=== PATIENT | female | born 1995 | race African-American/Black ===

== ENCOUNTER 2019-01-23 18:29 | Emergency (ER) | payer SELFPAY ==
[~2019-01-23] VITALS: Ht 165.1 cm; Wt 86.2 kg
--- NOTE | 2019-01-23 18:48 | NUR ---
pt ambulating with steady gait. family at bedside. A&O x4. c/o right jaw pain started yesterday. hx of cellulitis on the other cheek per pt. had dental procedure done beginning of the year. pain does not radiate per pt. able to clench teeth without pain. speech is clear and able to make needs known / follow commands. Breathing even and unlabored, no SOB noted. denies any / GI distress. fall precautions implemented per protocol. bed low, s/r up x2.
--- NOTE | 2019-01-23 19:07 | NUR ---
Report given to Lita LONDON
--- NOTE | 2019-01-23 19:07 | NUR ---
HAND OFF AND SBAR RECEIVED FROM OUTGOING DAY SHIFT RN MD AT BEDSIDE FOR HX AND PHYSICAL PT IS CALM, NAD DECLINED PAIN MEDS AT THIS TIME, C/O PAIN ON R LOWER MOLAR ALONG THE GUMLINE PT STATES SHE WOULD LIKE TO WAIT FOR ADMITTING GLERK TO TALK ABOUT INSURANCE OPTIONS BEFORE ANY INTERVENTIONS/DIAGNOSTICS CAN BE DONE SIDERAILSX2 UP BED AT LOWEST POSITION
[2019-01-23] MEDS ORDERED: SWABABLE VALVE TRANSFER SET EA MC ONE (19:41)
[2019-01-23] MEDS ORDERED: IV NORMAL SALINE 250 ML IV ONE (19:41)
[2019-01-23] MEDS ORDERED: IOHEXOL 300MG/ML 100 ML INFUS..BTL ONE (19:41)
--- NOTE | 2019-01-23 20:06 | NUR ---
Patient does not wish to proceed with medical care recommended by Dr. GUAJARDO. Patient given information related to possible complications, up to and including , which could occur as a result of leaving the hospital at this time. Patient verbalizes understanding of risks involved due to leaving against medical advice. Patient has signed AMA form.
[2019-01-23 20:21] VITALS: BP 116/93
== END 2019-01-23 20:20 | disposition left against medical advice (07) ==
LOC: ER 18:31
DX: K06.8 Other specified disorders of gingiva and edentulous alveolar ridge (principal); R22.0 Localized swelling, mass and lump, head
CPT/HCPCS: A4663; J7050; Q9967